=== PATIENT | female | born 1970 | race Caucasian/White ===

== ENCOUNTER 2018-09-02 09:01 | Emergency (ER) | payer OTHER ==
[2018-09-02 09:06] VITALS: BP 114/71; PULSE 91; TEMP 99; BMI 22.4
--- NOTE | 2018-09-02 09:11 | PDOC ---
History of Present Illness - General Chief Complaint: Vaginal Bleeding Stated Complaint: VAGINAL BLEED/ HEADACHE Time Seen by Provider: 09/02/18 09:08 History Source: Patient Past History - Past Medical History Allergies/Adverse Reactions: Allergies Allergy/AdvReac Type Severity Reaction Status Date / Time No Known Allergies Allergy Verified 09/02/18 09:05 Home Medications: Ambulatory Orders Albuterol Sulfate Inhaler - [Ventolin HFA Inhaler -] 2 inh PO Q4H PRN #1 inh Azithromycin [Zithromax Z-FAIZAN (5 DAYS) -] 250 mg PO ASDIR #6 tablet 06/04/15 Fexofenadine/Pseudoephedrine [Cecily-D 24 Hour Tablet] 1 each PO DAILY #7 tab.er.24h 06/04/15 COPD: No - Suicide/Smoking/Psychosocial Hx Smoking History: Never smoked Number of Cigarettes Smoked Daily: 10 'Breaking Loose' booklet given: 06/04/15 Hx Alcohol Use: Yes (SOCIAL) Substance Use Type: None *Physical Exam - Vital Signs Last Vital Signs Temp Pulse Resp BP Pulse Ox 99.0 F 91 H 18 114/71 100 09/02/18 09:02 09/02/18 09:02 09/02/18 09:02 09/02/18 09:02 09/02/18 09:02 *DC/Admit/Observation/Transfer - Referrals Referrals: Nathen St MD [Primary Care Provider] - - Patient Instructions - Post Discharge Activity
[2018-09-02] MEDS ORDERED: METOCLOPRAMIDE HCL INJECTION 10 MG/2 ML VIAL IVPB ONE (09:49)
[2018-09-02] MEDS ORDERED: KETOROLAC TROMETHAMINE 30 MG/1 ML VIAL IVPUSH ONE (09:49)
--- NOTE | 2018-09-02 09:59 | PDOC ---
History of Present Illness - General Chief Complaint: Vaginal Bleeding Stated Complaint: VAGINAL BLEED/ HEADACHE Time Seen by Provider: 09/02/18 09:08 History Source: Patient - History of Present Illness Timing/Duration: reports: constant Past History - Past Medical History Allergies/Adverse Reactions: Allergies Allergy/AdvReac Type Severity Reaction Status Date / Time No Known Allergies Allergy Verified 09/02/18 09:05 Home Medications: Ambulatory Orders Albuterol Sulfate Inhaler - [Ventolin HFA Inhaler -] 2 inh PO Q4H PRN #1 inh Azithromycin [Zithromax Z-FAIZAN (5 DAYS) -] 250 mg PO ASDIR #6 tablet 06/04/15 Fexofenadine/Pseudoephedrine [Cecily-D 24 Hour Tablet] 1 each PO DAILY #7 tab.er.24h 06/04/15 Hydrocodone/Ibuprofen [VICOPROFEN 7.5/200 mg [NF MEDICATION]] 1 tab PO Q6H #15 tablet MDD 4 doses 09/02/18 Nitrofurantoin Monohyd/M-Cryst [Macrobid -] 100 mg PO BID #14 capsule 09/02/18 COPD: No - Suicide/Smoking/Psychosocial Hx Smoking History: Never smoked Number of Cigarettes Smoked Daily: 10 'Breaking Loose' booklet given: 06/04/15 Hx Alcohol Use: Yes (SOCIAL) Substance Use Type: None Review of Systems - Review of Systems Constitutional: No: Chills, Fever, Weakness, Unexplained wgt Loss HEENTM: No: Blurred Vision Respiratory: No: Shortness of Breath ABD/GI: Yes: Abdominal cramping. No: Nausea, Vomiting : No: Dysuria, Flank Pain Neurological: Yes: Headache. No: Numbness, Tingling, Weakness, Dizziness *Physical Exam - Vital Signs Last Vital Signs Temp Pulse Resp BP Pulse Ox 99.0 F 91 H 18 114/71 100 09/02/18 09:02 09/02/18 09:02 09/02/18 09:02 09/02/18 09:02 09/02/18 09:02 - Physical Exam General Appearance: Yes: Appropriately Dressed. No: Apparent Distress HEENT: positive: Normal Voice Neck: positive: Supple Respiratory/Chest: negative: Respiratory Distress Female Pelvic Exam: positive: normal external exam, normal adnexa, vaginal bleeding (minimal vag bleed). negative: CMT, adnexal tenderness Gastrointestinal/Abdominal: positive: Normal Bowel Sounds, Tender (difuse ttp to suprapubic area, NT over mcburneys), Soft. negative: Guarding, Rebound Musculoskeletal: negative: CVA Tenderness Integumentary: positive: Dry, Warm Neurologic: positive: clinical cytogeneticist II-XII NML intact, Fully Oriented, Alert, Normal Mood/ Affect, Motor Strength 09/17 ED Treatment Course - LABORATORY CBC & Chemistry Diagram: 09/02/18 09:55 09/02/18 09:55 - RADIOLOGY Radiology Studies Ordered: Category Date Time Status PELVIS(OTHER) US [US] Stat Ultrasound 09/02/18 09:49 Ordered TRANSVAGINAL ULTRASOUND US [US] Stat Ultrasound 09/02/18 09:49 Ordered Medical Decision Making - Medical Decision Making 09/02/18 09:50 48-year-old female, endorses history of migraines, fibroids, here with vaginal bleeding. Patient states she got normal menses > 2 weeks ago, but that she started bleeding again 4 days ago, mostly mild and using 1-2 pantyliners a day. Also reports some bloating and pelvic discomfort which she states is typical of her menstruation, but worse this time. Patient states for the past year has been having irregular bleeding and was told by her BLOOD BANK CUSTODIAN that she is most likely pre-menopausal. States she had an ultrasound last year and was told she had 1 large fibroid per patient. Patient denies any weakness, dizziness, SOB, dysuria , flank pain, nausea, vomiting, fever or chills. Pt also complaining of intermittent L sided headache x several days, aching in nature, 6/10, that feels different from her migraines. No visual changes. For unclear reasons, has not taken anything for pain. See exam Irregular bleeding ?premenopausal, r/o preg, has h/o fibroids -pain control for pelvic cramping -labs -US ARIZMENDI Different from pt's migraines No neuro sxs No infectious sxs Exam unremarkable -pain control/reassess -unlikely need neuroimaging in ED 09/02/18 10:01 09/02/18 11:37 US read As Multiple Fibroids, Largest Measuring ~5 Cm. Also Seen Is a Complex Cyst to Right Ovary that may represent hemorrhagic cyst per report. Patient Reports That Pain Has since Improved with Meds. Mild Leukocytosis to 12 with over 4000 Bacteria on UA with 2 WBC, Trace LE and No Nitrites. Patient Reports No Dysuria at This Time and has no flank pain, n/v/f/c. Will consider treating given sig bacteruria. Ucx sent. Will dc with Pain Control. Patient States She Has BLOOD BANK CUSTODIAN Appointment on Tuesday and Will Follow-Up *DC/Admit/Observation/Transfer Diagnosis at time of Disposition: DUB (dysfunctional uterine bleeding) Headache Qualifiers: Headache type: unspecified Headache chronicity pattern: acute headache Intractability: not intractable Qualified Code(s): R51 - Headache - Discharge Dispostion Disposition: HOME Condition at time of disposition: Improved - Prescriptions Prescriptions: Hydrocodone/Ibuprofen [VICOPROFEN 7.5/200 mg [NF MEDICATION]] 1 tab PO Q6H #15 tablet MDD 4 doses Nitrofurantoin Monohyd/M-Cryst [Macrobid -] 100 mg PO BID #14 capsule - Referrals Referrals: Nathen St MD [Primary Care Provider] - - Patient Instructions Printed Discharge Instructions: Ovarian Cyst, Uterine Fibroids Additional Instructions: You were given a copy of your ultrasound report which shows multiple fibroids and a right-sided complex cyst. Take 800 Motrin for pain when it's moderate. If you need further pain control, you can take Vicoprofen as directed. We have also started you on antibiotics based on significant bacteria in your urine today Please follow-up with your BLOOD BANK CUSTODIAN on Tuesday as already scheduled - Post Discharge Activity Forms/Work/School Notes: Back to Work
[2018-09-02 10:07] LABS: BASO % 0.4 % (0-2.0); EOS % 1.1 % (0-4.5); HEMOGLOBIN 12.1 GM/dL (10.7-15.3); LYMPH % 17.7 % (8-40); MCH 30.7 pg (25.7-33.7); MCHC 33.7 g/dl (32.0-36.0); MEAN CELL VOLUME 90.9 fl (80-96); MEAN PLT VOLUME 7.4 fl (7.5-11.1); MONO % 7.4 % (3.8-10.2); NEUT % 73.4 % (42.8-82.8); PLATELET COUNT 363 K/MM3 (134-434); RBC 3.96 M/mm3 (3.60-5.2); RDW 13.4 % (11.6-15.6); WHITE BLOOD COUNT 12.2 K/mm3 (4.0-10.0)
[2018-09-02] MEDS ORDERED: METOCLOPRAMIDE HCL INJECTION 10 MG/2 ML VIAL ONE (10:07)
[2018-09-02] MEDS ORDERED: KETOROLAC TROMETHAMINE 30 MG/1 ML VIAL ONE (10:07)
[2018-09-02 10:13] LABS: HCG,QUALITATIVE URINE Negative
--- NOTE | 2018-09-02 10:19 | PDOC ---
*Physical Exam - Vital Signs Last Vital Signs Temp Pulse Resp BP Pulse Ox 99.0 F 91 H 18 114/71 100 09/02/18 09:02 09/02/18 09:02 09/02/18 09:02 09/02/18 09:02 09/02/18 09:02 ED Treatment Course - LABORATORY CBC & Chemistry Diagram: 09/02/18 09:55 09/02/18 09:55 - ADDITIONAL ORDERS Additional order review: Laboratory Results 09/02/18 09:55 Urine HCG, Qual Negative - Medications Given in the ED: ED Medications Discontinued Medications Generic Name Dose Route Start Last Admin Trade Name Paulieq PRN Reason Stop Dose Admin Ketorolac Tromethamine 30 mg 09/02/18 09:49 09/02/18 10:11 Toradol Injection - IVPUSH 09/02/18 09:50 30 mg ONCE ONE Administration Metoclopramide HCl 10 mg 09/02/18 09:49 09/02/18 10:11 Reglan Injection - IVPB 09/02/18 09:50 10 mg ONCE ONE Administration Medical Decision Making - Medical Decision Making 09/02/18 10:20 Ms Haywood is a 48 yo F h/o migraines, fibroids, presenting with vaginal bleeding. LMP > 2 weeks ago VB began 4 days ago She has noted irregular vaginal bleeding Pt seen by Midlevel Provider under my direct supervision Pt interviewed and examined Ancillary studies reviewed I agree with plan as outlined by Midlevel Provider 09/02/18 11:11 Laboratory Tests 09/02/18 09/02/18 09/02/18 09:55 09:55 09:55 WBC 12.2 H Hgb 12.1 Hct 36.0 Plt Count 363 BUN 13 Creatinine 0.7 Urine HCG, Qual Negative 09/02/18 11:32 US: fibroid uterus, right ovarian complex cyst noted, 3.4 x 2.8 s 3.2 cm, hemorrhagic, nml blood flow Pt can be discharge to home Follow up with obstetrics and gynecology professor *DC/Admit/Observation/Transfer - Referrals Referrals: Nathen St MD [Primary Care Provider] - - Patient Instructions - Post Discharge Activity
[2018-09-02 10:33] LABS: ALBUMIN 3.3 g/dl (3.4-5.0); ALK PHOS 82 U/L (45-117); ANION GAP 8 MMOL/L (8-16); BILIRUBIN,TOTAL 0.3 mg/dL (0.2-1); BLOOD UREA NITROGEN 13 mg/dL (7-18); CHLORIDE 106 mmol/L (98-107); CO2 25 mmol/L (21-32); CREATININE 0.7 mg/dL (0.55-1.3); GLUCOSE,RANDOM 86 mg/dL (74-106); POTASSIUM 3.9 mmol/L (3.5-5.1); SGOT/AST 10 U/L (15-37); SGPT/ALT 11 U/L (13-61); SODIUM 139 mmol/L (136-145); TOT PROT 7.2 g/dl (6.4-8.2)
[2018-09-02 10:38] LABS: EPI CELLS 3.2 /HPF (0-5/HPF); URINE APPEARANCE CLEAR; URINE BACTERIA 4099.1 /hpf (NEGATIVE); URINE BILIRUBIN NEGATIVE (NEGATIVE); URINE CASTS 2 /lpf (0-8); URINE COLOR YELLOW; URINE GLUCOSE (UA) NEGATIVE (NEGATIVE); URINE KETONE NEGATIVE (NEGATIVE); URINE LEUK ESTERASE TRACE (NEGATIVE); URINE NITRITE NEGATIVE (NEGATIVE); URINE PROTEIN NEGATIVE (NEGATIVE); URINE RBC 3 /hpf (0-4); URINE UROBILINOGEN 0.2 mg/dL (0.2-1.0); URINE WBC 2 /hpf (0-5)
== END 2018-09-02 12:18 | disposition home or self-care (01) ==
LOC: JER 09:01
PROC: 3E033GC Introduction of Other Therapeutic Substance into Peripheral Vein, Percutaneous Approach (ICD-10-PCS; principal; 2018-09-02)
PROC: 3E0333Z Introduction of Anti-inflammatory into Peripheral Vein, Percutaneous Approach (ICD-10-PCS; 2018-09-02)
DX: N93.8 Other specified abnormal uterine and vaginal bleeding (principal)
CPT/HCPCS: 36415; 76830-TC; 76856-TC; 80053; 81003; 84703; 85025; 87086; 87186; 96374; 96375; 99281-25

== ENCOUNTER 2021-11-29 19:00 | Emergency (ER) | payer SELFPAY ==
[2021-11-29 19:37] VITALS: BP 92/60; PULSE 93; TEMP 98.4; BMI 22.1
[2021-11-29] MEDS ORDERED: CYCLOBENZAPRINE HCL 10 MG TABLET (FP) PO ONE (20:07)
[2021-11-29] MEDS ORDERED: LIDOCAINE 5% TOPICAL PATCH TP ONE (20:07)
[2021-11-29] MEDS ORDERED: KETOROLAC TROMETHAMINE 30 MG/1 ML VIAL IM ONE (20:07)
[2021-11-29] MEDS ORDERED: LIDOCAINE PATCH REMOVAL MC SCH (22:00)
== END 2021-11-30 00:47 | disposition home or self-care (01) ==
LOC: JERFT 19:00
PROC: 3E0233Z Introduction of Anti-inflammatory into Muscle, Percutaneous Approach (ICD-10-PCS; principal; 2021-11-29)
DX: S76.212A Strain of adductor muscle, fascia and tendon of left thigh, initial encounter (principal)
CPT/HCPCS: 99283-25

== ENCOUNTER 2022-11-15 15:27 | Emergency (ER) | payer SELFPAY ==
[2022-11-15 15:40] VITALS: RESP 18; BMI 22.7
[2022-11-15] MEDS ORDERED: LIDOCAINE 5% TOPICAL PATCH TP ONE (16:34)
[2022-11-15] MEDS ORDERED: ACETAMINOPHEN 500 MG TABLET (FP) PO ONE (16:34)
[2022-11-15] MEDS ORDERED: LIDOCAINE 5% TOPICAL PATCH ONE (16:40)
[2022-11-15] MEDS ORDERED: ACETAMINOPHEN 325 MG TABLET (FP) ONE (16:40)
[2022-11-15 17:27] LABS: BASO % 0.7 % (0-2.0); EOS % 2.7 % (0-4.5); HEMATOCRIT 40.9 % (32.4-45.2); HEMOGLOBIN 13.6 GM/dL (10.7-15.3); LYMPH % 28.9 % (8-40); MCHC 33.4 g/dl (32.0-36.0); MEAN CELL VOLUME 89.7 fl (80-96); MEAN PLT VOLUME 7.8 fl (7.5-11.1); MONO % 6.3 % (3.8-10.2); NEUT % 61.4 % (42.8-82.8); PLATELET COUNT 330 10^3/uL (134-434); RBC 4.55 M/mm3 (3.60-5.2); RDW 13.6 % (11.6-15.6); WHITE BLOOD COUNT 8.2 K/mm3 (4.0-10.0)
[2022-11-15 17:46] LABS: POTASSIUM 4.6 mmol/L (3.5-5.1)
[2022-11-15 17:47] LABS: CALCIUM 9.6 mg/dL (8.5-10.1)
[2022-11-15 17:48] LABS: ALBUMIN 3.5 g/dl (3.4-5.0)
[2022-11-15 17:51] LABS: CREATININE 1.3 mg/dL (0.55-1.3)
[2022-11-15 17:53] LABS: BILIRUBIN,TOTAL 0.3 mg/dL (0.2-1); TOT PROT 6.8 g/dl (6.4-8.2)
[2022-11-15 18:24] VITALS: BP 105/74; PULSE 66; TEMP 98
[2022-11-15] MEDS ORDERED: LIDOCAINE PATCH REMOVAL MC SCH (22:00)
== END 2022-11-15 18:24 | disposition home or self-care (01) ==
LOC: JER 15:27
DX: R07.89 Other chest pain (principal); M25.512 Pain in left shoulder; M25.511 Pain in right shoulder; R06.02 Shortness of breath; R00.2 Palpitations; R00.0 Tachycardia, unspecified
CPT/HCPCS: 36415; 71045-TC-FY; 80053; 84443; 84484; 85025; 93005; 93010; 99285-25